=== PATIENT | male | born 1945 | race Caucasian/White ===

== ENCOUNTER 2016-08-07 04:43 | Emergency (ER) | payer OTHER ==
--- NOTE | 2016-08-07 06:18 | DIAGNOSTIC IMAGING REPORT ---
PROCEDURE: CT HEAD WITHOUT CONTRAST INDICATION: TRAUMA/INJURY TECHNIQUE: Noncontrast axial images with sagittal and coronal reformations. COMPARISON: None. FINDINGS: Mild cortical atrophy and minor white matter chronic ischemic changes. Normal ventricular system. No evidence of acute intracranial process. Visualized mastoids and sinuses are clear. IMPRESSION: 1. No acute intracranial abnormality 2. Mild atrophy with minor white matter chronic ischemic changes 3. Findings discussed with Dr. Vinson at 06:16 a.m.[facility] Standard Time
--- NOTE | 2016-08-07 06:18 | DIAGNOSTIC IMAGING REPORT ---
PROCEDURE: CT HEAD WITHOUT CONTRAST INDICATION: TRAUMA/INJURY TECHNIQUE: Noncontrast axial images with sagittal and coronal reformations. COMPARISON: None. FINDINGS: Mild cortical atrophy and minor white matter chronic ischemic changes. Normal ventricular system. No evidence of acute intracranial process. Visualized mastoids and sinuses are clear. IMPRESSION: 1. No acute intracranial abnormality 2. Mild atrophy with minor white matter chronic ischemic changes 3. Findings discussed with Dr. Vinson at 06:16 a.m.[facility] Standard Time
--- NOTE | 2016-08-07 07:14 | DIAGNOSTIC IMAGING REPORT ---
PROCEDURE: XR CHEST 1 VIEW INDICATION: FALL TECHNIQUE: Portable AP view 05:24 a.m. COMPARISON: None. FINDINGS: Poor inspiration with mild bibasilar atelectasis versus scarring. Heart and mediastinum are normal. Thorax is normal. IMPRESSION: 1. Progression with mild bibasilar atelectasis versus scarring
--- NOTE | 2016-08-07 09:14 | ED ORDER SUMMARY ---
..... Patient: GLENNA DIAZ OrderSheet [facility] VisitID: [id number] [place] [address] 71y, M Registration Date/Time: 08/07/2016 ORDER SHEET Weight: 81.6 kg (stated) Allergies: No Known Drug Allergy GENERAL ORDERS: Chest 1V Urgent (05:08/07/2016 Jocelyn LUCIA) (Ack 5:19 SRedmond) (5:28 Deysi) Service Team Leader (Continuous) (05:08/07/2016 Jocelyn LUCIA) (Ack 5:19 SRedmond) (5:36 DDavis R.N.) CBC w Diff Urgent (05:08/07/2016 Jocelyn LUCIA) (Ack 5:19 SRedmond) (5:36 DDavis R.N.) CMP Urgent (05:08/07/2016 Jocelyn LUCIA) (Ack 5:19 SRedmond) (5:36 DDavis R.N.) PT with INR Urgent (05:08/07/2016 Jocelyn LUCIA) (Ack 5:19 SRedmond) (5:36 DDavis R.N.) PTT Urgent (05:08/07/2016 Jocelyn LUCIA) (Ack 5:19 SRedmond) (5:36 DDavis R.N.) Amylase Urgent (05:08/07/2016 Jocelyn LUCIA) (Ack 5:19 SRedmond) (5:36 DDavis R.N.) Lipase Urgent (05:08/07/2016 Jocelyn LUCIA) (Ack 5:19 SRedmond) (5:36 DDavis R.N.) CPK Urgent (05:08/07/2016 Jocelyn LUCIA) (Ack 5:19 SRedmond) (5:36 DDavis R.N.) Troponin-I Urgent (05:08/07/2016 Jocelyn LUCIA) (Ack 5:19 SRedmond) (5:36 DDavis R.N.) Ethyl Alcohol Urgent (05:08/07/2016 Jocelyn LUCIA) (Ack 5:19 SRedmond) (5:36 DDavis R.N.) Pulse oximeter (05:14 08/07/2016 Jocelyn LUCIA) (Ack 5:19 SRedmond) (5:36 DDavis R.N.) Oxygen (2 L/min) (NC) (05:08/07/2016 Jocelyn LUCIA) (Ack 5:19 SRedmond) (5:42 RCollier R.N.) EKG - ER Stat (05:08/07/2016 Jocelyn LUCIA) (5:15 CHagerty ER Metalizing Machine Operator) Vitals - Orthostatic (05:08/07/2016 Jocelyn LUCIA) (Ack 5:19 SRedmond) CT Head wo Cont Urgent (05:08/07/2016 Jocelyn LUCIA) (Ack 5:19 SRedmond) (5:42 RCollier R.N.) MEDICATION ORDERS: IV FLUIDS: IV Saline Lock (05:08/07/2016 Jocelyn LUCIA) (Ack 5:26 RCollier R.N.) (5:37 DDavis R.N.) ORDER SHEET NOTES: [Electronically signed by Marlon Lopez R.N. (10:07 08/07/2016)] [Electronically signed by Kvng Vinson MD (22:24 08/12/2016)] [Electronically locked/signed by Marlon Lopez R.N. (10:08/07/2016)]
--- NOTE | 2016-08-07 09:14 | ED NURSING NOTES ---
Clinical Report - Nurses [facility] [address] [place] [address] 08/07/2016 4:47 Patient: GLENNA DIAZ TRIAGE Triage time 04:47. Acuity: LEVEL 3. Chief Complaint: FALL while walking, onto a carpeted surface; lost balance. Alert. No acute distress. --04:53 Christiana Hilliard R.N. 04:47 08/07/16. BP: 117/74. HR: 76. RR: 17. O2 saturation: 92% on room air. Temp: 97.6 F (oral). Pain level now: 0/10. --04:53 Christiana Hilliard R.N. Weight: 81.6 kg stated. Height/Length: 72 inches Per Patient. BMI: 24.4. --04:52 Christiana Hilliard R.N. Medications Enoxaparin Sodium Subcutaneous (Solution 80 mg/0.8mL). --04:57 Christiana Hilliard R.N. Warfarin Sodium Oral (Tablet 5 mg) 1 tablet, daily (one and a half tablets on Wednesday, Wednesday, and Wednesday). --04:59 Christiana Hilliard R.N. Atorvastatin Calcium Oral (Tablet 40 mg) 1 tablet, daily. --05:00 Christiana Hilliard R.N. Perphenazine Oral (Tablet 2 mg) 1 tablet, twice daily. --05:01 Christiana Hilliard R.N. AmLODIPine Besylate Oral (Tablet 2.5 mg) 3 tablets, daily, for blood pressure. --05:02 Christiana Hilliard R.N. Vitamin D Oral (Tablet 1000 unit) 2 tablets, daily. --05:03 Christiana Hilliard R.N. Doxepin HCl Oral (Capsule 50 mg) 1 capsule, 2x a day. --05:03 Christiana Hilliard R.N. Propranolol HCl ER Oral 20mg, twice daily. --05:04 Christiana Hilliard R.N. FLUoxetine HCl Oral (Capsule 10 mg) 5 capsules, daily, depression. --05:08 Christiana Hilliard R.N. Allergies No Known Drug Allergy. --05:16 Christiana Hilliard R.N. History Arrived by EMS. Historian: patient. Primary physician ([place]). ( pt lives home alone and has resent history of GLFs. Pt states he has home health nurses that come to see him once a week for past month, pt reports Wednesday was last visit and services are now canceled.). This occurred just prior to arrival and today. Treatment FOOD AND BEVERAGE LEAD: See EMS report. PAST MEDICAL HX: Tetanus status: unknown. SOCIAL HX: Smoker- current status unknown (smokes Ciggarellos (3 daily)). Alcohol use; consumes three liquor daily. No drug use. FUNCTIONAL ASSESSMENT: Functional assessment performed: requires assistance with the activities of daily living; uses walker and cane. --04:53 Christiana Hilliard R.N. PROBLEMS: Anxiety Reaction. Hypertension. Depression. --05:14 Christiana Hilliard R.N. Interventions ID band on patient. To treatment room. --04:53 Christiana Hilliard R.N. PHYSICAL ASSESSMENT Patient gowned. GENERAL / NEURO / PSYCH: Alert. Oriented X 4. Appears in no acute distress. HEENT: Left frontal area: large and superficial abrasion. RESPIRATORY: Respirations not labored. CVS: Capillary refill less than 2 seconds. SKIN: Skin is warm and dry. --04:54 Christiana Hilliard R.N. NURSING PROGRESS NOTES Two patient identifiers checked. Call light placed in reach. Side rails up x 2. Bed placed in lowest position. Brakes of bed on. --04:54 Christiana Hilliard R.N. 04:54 08/07/2016 Site #1 started via IV in the left wrist with an 20g angiocath, with aseptic technique and good blood return. Saline lock flushed with 10 mL saline (Started by SHAHID Rosen). --04:54 Christiana Hilliard R.N. EKG time: (0500). EKG was ordered, performed by a tech and shown to the ED physician. --05:14 Isacc Raygoza, ER Insurance Processor Patient transported to CT by stretcher with tech. (05:35). --05:35 Christiana Hilliard R.N. 05:32 08/07/2016 Site #2 started via IV in the right antecubital space with an 20g angiocath, with aseptic technique and good blood return; one attempt. Blood drawn: rainbow set. Labeled in the presence of the patient and sent to the lab. Saline lock flushed with 10 mL saline. --05:37 David Landis R.N. Patient returned from CT by stretcher with tech. (05:41). --05:41 Christiana Hilliard R.N. Visitor at bedside (Daughter). Patient and family informed about plan of care. --05:50 Christiana Hilliard R.N. 05:50 08/07/16. BP: 129/73. HR: 84. RR: 15. O2 saturation: 94% on room air. Pain level now: 0/10. --05:51 Christiana Hilliard R.N. ( Daughter, Becky Hayes, states she is going home to rest. Will be available to pick pt up, when ready. cell chetan #[phone]). --06:16 Christiana Hilliard R.N. The patient is calm and resting quietly. GENERAL / NEURO / PSYCH: Alert. Oriented X 4. RESPIRATORY: No respiratory distress. --07:33 Ebony Sams R.N. 07:32 08/07/16. BP: 133/68. HR: 82. RR: 18. O2 saturation: 94%. Pain level now 0/10. --07:33 Ebony Sams R.N. 10:04 08/07/16. BP: 117/57. HR: 67. RR: 14. O2 saturation: 94%. Temp: 98.6 F. Pain level now 0/10. 08:30 08/07/16. BP: 122/72. HR: 76. RR: 18. O2 saturation: 94%. 07:30 08/07/16. BP: 127/63. HR: 73. RR: 18. O2 saturation: 93%. --10:06 Marlon Lopez R.N. DISPOSITION / DISCHARGE 09:49 08/07/2016 Site #1 removed upon discharge. Catheter intact. Pressure dressing applied. --10:04 Marlon Lopez R.N. 09:54 08/07/2016 Site #2 removed upon discharge. Catheter intact. Pressure dressing applied. --10:04 Marlon Lopez R.N. Condition at departure: improved. No learning barriers present. Discharge instructions provided and reviewed with the patient and family. Reviewed warnings. Reviewed medication(s). Treatments reviewed. Reviewed referrals. Patient verbalized understanding. Written instructions provided in Uzbek. The patient was discharged home and accompanied by family. He left the Emergency Department ambulatory and via private vehicle. Family member driving. --10:05 Marlon Lopez R.N. 10:04 08/07/16. BP: 117/57. HR: 67. RR: 14. O2 saturation: 94%. Temp: 98.6 F. Pain level now 0/10. --10:05 Marlon Lopez R.N. Departure time: 10:Aug 07 2016. --10:06 Marlon Lopez R.N. Locked/Released at 08/07/2016 10:07 by Marlon Lopez R.N.
--- NOTE | 2016-08-07 09:14 | ED NURSING NOTES ---
Clinical Report - Nurses [place] [address] [place] [address] 08/07/2016 4:47 Patient: GLENNA DIAZ TRIAGE Triage time 04:47. Acuity: LEVEL 3. Chief Complaint: FALL while walking, onto a carpeted surface; lost balance. Alert. No acute distress. --04:53 Christiana Hilliard R.N. 04:47 08/07/16. BP: 117/74. HR: 76. RR: 17. O2 saturation: 92% on room air. Temp: 97.6 F (oral). Pain level now: 0/10. --04:53 Christiana Hilliard R.N. Weight: 81.6 kg stated. Height/Length: 72 inches Per Patient. BMI: 24.4. --04:52 Christiana Hilliard R.N. Medications Enoxaparin Sodium Subcutaneous (Solution 80 mg/0.8mL). --04:57 Christiana Hilliard R.N. Warfarin Sodium Oral (Tablet 5 mg) 1 tablet, daily (one and a half tablets on Wednesday, Wednesday, and Wednesday). --04:59 Christiana Hilliard R.N. Atorvastatin Calcium Oral (Tablet 40 mg) 1 tablet, daily. --05:00 Christiana Hilliard R.N. Perphenazine Oral (Tablet 2 mg) 1 tablet, twice daily. --05:01 Christiana Hilliard R.N. AmLODIPine Besylate Oral (Tablet 2.5 mg) 3 tablets, daily, for blood pressure. --05:02 Christiana Hilliard R.N. Vitamin D Oral (Tablet 1000 unit) 2 tablets, daily. --05:03 Christiana Hilliard R.N. Doxepin HCl Oral (Capsule 50 mg) 1 capsule, 2x a day. --05:03 Christiana Hilliard R.N. Propranolol HCl ER Oral 20mg, twice daily. --05:04 Christiana Hilliard R.N. FLUoxetine HCl Oral (Capsule 10 mg) 5 capsules, daily, depression. --05:08 Christiana Hilliard R.N. Allergies No Known Drug Allergy. --05:16 Christiana Hilliard R.N. History Arrived by EMS. Historian: patient. Primary physician (ME). ( pt lives home alone and has resent history of GLFs. Pt states he has home health nurses that come to see him once a week for past month, pt reports Wednesday was last visit and services are now canceled.). This occurred just prior to arrival and today. Treatment HEALTH INFORMATION SYSTEMS TECHNICIAN: See EMS report. PAST MEDICAL HX: Tetanus status: unknown. SOCIAL HX: Smoker- current status unknown (smokes Ciggarellos (3 daily)). Alcohol use; consumes three liquor daily. No drug use. FUNCTIONAL ASSESSMENT: Functional assessment performed: requires assistance with the activities of daily living; uses walker and cane. --04:53 Christiana Hilliard R.N. PROBLEMS: Anxiety Reaction. Hypertension. Depression. --05:14 Christiana Hilliard R.N. Interventions ID band on patient. To treatment room. --04:53 Christiana Hilliard R.N. PHYSICAL ASSESSMENT Patient gowned. GENERAL / NEURO / PSYCH: Alert. Oriented X 4. Appears in no acute distress. HEENT: Left frontal area: large and superficial abrasion. RESPIRATORY: Respirations not labored. CVS: Capillary refill less than 2 seconds. SKIN: Skin is warm and dry. --04:54 Christiana Hilliard R.N. NURSING PROGRESS NOTES Two patient identifiers checked. Call light placed in reach. Side rails up x 2. Bed placed in lowest position. Brakes of bed on. --04:54 Christiana Hilliard R.N. 04:54 08/07/2016 Site #1 started via IV in the left wrist with an 20g angiocath, with aseptic technique and good blood return. Saline lock flushed with 10 mL saline (Started by SHAHID Rosen). --04:54 Christiana Hilliard R.N. EKG time: (0500). EKG was ordered, performed by a tech and shown to the ED physician. --05:14 Isacc Raygoza, ER Boring Machine Set Up Operator Jig Patient transported to CT by stretcher with tech. (05:35). --05:35 Christiana Hilliard R.N. 05:32 08/07/2016 Site #2 started via IV in the right antecubital space with an 20g angiocath, with aseptic technique and good blood return; one attempt. Blood drawn: rainbow set. Labeled in the presence of the patient and sent to the lab. Saline lock flushed with 10 mL saline. --05:37 David Landis R.N. Patient returned from CT by stretcher with tech. (05:41). --05:41 Christiana Hilliard R.N. Visitor at bedside (Daughter). Patient and family informed about plan of care. --05:50 Christiana Hilliard R.N. 05:50 08/07/16. BP: 129/73. HR: 84. RR: 15. O2 saturation: 94% on room air. Pain level now: 0/10. --05:51 Christiana Hilliard R.N. ( Daughter, Becky Hayes, states she is going home to rest. Will be available to pick pt up, when ready. cell chetan #[phone]). --06:16 Christiana Hilliard R.N. The patient is calm and resting quietly. GENERAL / NEURO / PSYCH: Alert. Oriented X 4. RESPIRATORY: No respiratory distress. --07:33 Ebony Sams R.N. 07:32 08/07/16. BP: 133/68. HR: 82. RR: 18. O2 saturation: 94%. Pain level now 0/10. --07:33 Ebony Sams R.N. 10:04 08/07/16. BP: 117/57. HR: 67. RR: 14. O2 saturation: 94%. Temp: 98.6 F. Pain level now 0/10. 08:30 08/07/16. BP: 122/72. HR: 76. RR: 18. O2 saturation: 94%. 07:30 08/07/16. BP: 127/63. HR: 73. RR: 18. O2 saturation: 93%. --10:06 Marlon Lopez R.N. DISPOSITION / DISCHARGE 09:49 08/07/2016 Site #1 removed upon discharge. Catheter intact. Pressure dressing applied. --10:04 Marlon Lopez R.N. 09:54 08/07/2016 Site #2 removed upon discharge. Catheter intact. Pressure dressing applied. --10:04 Marlon Lopez R.N. Condition at departure: improved. No learning barriers present. Discharge instructions provided and reviewed with the patient and family. Reviewed warnings. Reviewed medication(s). Treatments reviewed. Reviewed referrals. Patient verbalized understanding. Written instructions provided in Swedish. The patient was discharged home and accompanied by family. He left the Emergency Department ambulatory and via private vehicle. Family member driving. --10:05 Marlon Lopez R.N. 10:04 08/07/16. BP: 117/57. HR: 67. RR: 14. O2 saturation: 94%. Temp: 98.6 F. Pain level now 0/10. --10:05 Marlon Lopez R.N. Departure time: 10:Aug 07 2016. --10:06 Marlon Lopez R.N. Locked/Released at 08/07/2016 10:07 by Marlon Lopez R.N.
--- NOTE | 2016-08-07 09:14 | ED ORDER SUMMARY ---
..... Patient: GLENNA DIAZ OrderSheet [facility] VisitID: [id number] [place] [address] 71y, M Registration Date/Time: 08/07/2016 ORDER SHEET Weight: 81.6 kg (stated) Allergies: No Known Drug Allergy GENERAL ORDERS: Chest 1V Urgent (05:08/07/2016 Jocelyn LUCIA) (Ack 5:19 SRedmond) (5:28 Deysi) Zyglo Technician (Continuous) (05:08/07/2016 Jocelyn LUCIA) (Ack 5:19 SRedmond) (5:36 DDavis R.N.) CBC w Diff Urgent (05:08/07/2016 Jocelyn LUCIA) (Ack 5:19 SRedmond) (5:36 DDavis R.N.) CMP Urgent (05:08/07/2016 Jocelyn LUCIA) (Ack 5:19 SRedmond) (5:36 DDavis R.N.) PT with INR Urgent (05:08/07/2016 Jocelyn LUCIA) (Ack 5:19 SRedmond) (5:36 DDavis R.N.) PTT Urgent (05:08/07/2016 Jocelyn LUCIA) (Ack 5:19 SRedmond) (5:36 DDavis R.N.) Amylase Urgent (05:08/07/2016 Jocelyn LUCIA) (Ack 5:19 SRedmond) (5:36 DDavis R.N.) Lipase Urgent (05:08/07/2016 Jocelyn LUCIA) (Ack 5:19 SRedmond) (5:36 DDavis R.N.) CPK Urgent (05:08/07/2016 Jocelyn LUCIA) (Ack 5:19 SRedmond) (5:36 DDavis R.N.) Troponin-I Urgent (05:08/07/2016 Jocelyn LUCIA) (Ack 5:19 SRedmond) (5:36 DDavis R.N.) Ethyl Alcohol Urgent (05:08/07/2016 Jocelyn LUCIA) (Ack 5:19 SRedmond) (5:36 DDavis R.N.) Pulse oximeter (05:14 08/07/2016 Jocelyn LUCIA) (Ack 5:19 SRedmond) (5:36 DDavis R.N.) Oxygen (2 L/min) (NC) (05:08/07/2016 Jocelyn LUCIA) (Ack 5:19 SRedmond) (5:42 RCollier R.N.) EKG - ER Stat (05:08/07/2016 Jocelyn LUCIA) (5:15 CHagerty ER Glue Sprayer) Vitals - Orthostatic (05:08/07/2016 Jocelyn LUCIA) (Ack 5:19 SRedmond) CT Head wo Cont Urgent (05:08/07/2016 Jocelyn LUCIA) (Ack 5:19 SRedmond) (5:42 RCollier R.N.) MEDICATION ORDERS: IV FLUIDS: IV Saline Lock (05:08/07/2016 Jocelyn ULCIA) (Ack 5:26 RCollier R.N.) (5:37 DDavis R.N.) ORDER SHEET NOTES: [Electronically signed by Marlon Lopez R.N. (10:07 08/07/2016)] [Electronically signed by Kvng Vinson MD (22:24 08/12/2016)] [Electronically locked/signed by Marlon Lopez R.N. (10:08/07/2016)]
--- NOTE | 2016-08-07 09:14 | ED CLINICAL REPORT ---
Clinical Report - Physicians/Mid Levels [facility] [address] [place] [address] 08/07/2016 4:47 Patient: GLENNA DIAZ Time Seen: 05:01. Arrived- By private vehicle. Historian- patient. HISTORY OF PRESENT ILLNESS Location of injuries- head. Chief Complaint: FALL. The injury occurred just prior to arrival. Occurred at home. ( the patient lives alone and has been having increasing numbers of falls lately. He is unsure why this happens and says that it is "because I lose my balance." His daughter arrived later in his visit and she reports that the frequency of these falls as increased. She also says that he does drink a lot of alcohol and is not candid about the amount that he drinks). Fell. The patient denies pain. The patient sustained a blow to the head. No neck pain or loss of consciousness. (He reports a small abrasion on his scalp.). REVIEW OF SYSTEMS No chills, fever, sweats, calf pain or chest pain. No cough, difficulty breathing, pedal edema, palpitations or abdominal pain. No constipation, diarrhea, nausea, vomiting or urinary problems. All systems otherwise negative, except as recorded above. PAST HISTORY [facility] - [facility]. SOCIAL HISTORY Current every day light tobacco smoker. Regular alcohol use; consumes three liquor daily. No drug use. He lives alone. FAMILY HISTORY Denies family medical history. ADDITIONAL NOTES The nursing notes have been reviewed. PHYSICAL EXAM Vital Signs: 08/07/2016 04:47 BP: 117/74. HR: 76. RR: 17. O2 saturation: 92%. Temp: 97.6 F. Pain level now: 0/10. Have been reviewed. Appearance: Alert. Head: Head non-tender. No swelling of head. Right frontal area: small abrasion. No deep abrasion. Eyes: Pupils equal, round and reactive to light. EOM intact. ENT: No dental injury. Pharynx normal. Neck: Painless ROM. Non-tender. CVS: Heart sounds normal. Respiratory: Breath sounds normal. Abdomen: No visible injury. Soft and nontender. Bowel sounds normal. No organomegaly. No mass. Back: ROM normal. Skin: Skin warm and dry. Extremities: Pelvis stable. Extremities atraumatic. No lower extremity edema. Neuro: (The patient was noted to have a mild 3 Hz tremor in both of his hands. Additionally he had moderate bradykinesia and cogwheel rigidity). LABS, X-RAYS, AND EKG EKG: Rate: 59. RBBB. Prior EKG unavailable. The study has been independently viewed by me. Chest X-ray: (IMPRESSION: 1. Progression with mild bibasilar atelectasis versus scarring). The X-rays were interpreted by the radiologist and contemporaneously by me. CT Head: (IMPRESSION: 1. No acute intracranial abnormality 2. Mild atrophy with minor white matter chronic ischemic changes). The study was interpreted contemporaneously by me and discussed with the radiologist. Laboratory Tests: CBC w Diff: (JOSE: 08/07/2016 05:23) ( [facility]07[facility] 05:30) Final results Test Result Flag Units (Reference) WHITE BLOOD COUNT 7.5 K/uL (4.5-11.5) RED BLOOD COUNT 4.90 M/uL (4.50-5.90) HEMOGLOBIN 13.3 L gm/dL (13.5-17.5) HEMATOCRIT 41.7 % (41.0-53.0) MEAN CELL VOLUME 85 fL (80-100) MEAN CORPUSCULAR HGB 27 pg (26-34) MEAN CORPUSCULAR HGB CONC 32 g/dL (31-37) RED CELL DISTRIBUTION WIDTH 20.9 H % (11.6-14.8) PLATELET COUNT 207 K/uL (150-400) NEUTROPHIL % 70.8 % (50-75) LYMPH % 20.6 L % (25-40) MONO % 6.7 % (3-14) EOSINOPHIL % 1.8 % (0-4) BASOPHIL % 0.1 % (0-2) PT with INR: (JOSE: 08/07/2016 05:23) ( [facility] 08/07/2016 05:39) Final results Test Result Flag Units (Reference) INR 2.5 H (0.8-1.2) Low Intensity Therapy: INR 1.5-2.0 PT range 18.5-23.1Mod.Intensity Therapy: INR 2.0-3.0 PT range 23.1-31.5High Intensity Therapy: INR 2.5-3.5 PT range 27.4-35.5High Intensity Therapy 2: INR 3.0-4.0 PT range 31.5-39.3 APTT 39 H SECONDS (24-34) CMP: (JOSE: 08/07/2016 05:23) ( [facility] 08/07/2016 05:46) Final results Test Result Flag Units (Reference) GLUCOSE 97 mg/dL (70-110) BUN 9 mg/dL (7-18) CREATININE 0.6 mg/dL (0.6-1.3) Estimated GFR >60 mL/min Estimated GFR- >60 mL/min Note: Persistent reduction over 3 months in eGFR<60 mL/min/1.73 m2 defines CKD. Patients with eGFR values>=60 mL/min/1.73 m2 may also have CKD if evidence ofpersistent proteinuria. Additional information may be foundat www.kidney.org. SODIUM 145 mmol/L (136-145) POTASSIUM 3.7 mmol/L (3.5-5.1) CHLORIDE 106 mmol/L (98-107) CARBON DIOXIDE 27 mmol/L (21-32) CALCIUM 9.1 mg/dL (8.5-10.1) TOTAL PROTEIN 7.9 g/dL (6.4-8.2) ALBUMIN 3.4 g/dL (3.3-5.0) BILIRUBIN, TOTAL 0.2 mg/dL (0.0-1.0) ALKALINE PHOSPHATASE 89 U/L (46-116) AST (SGOT) 43 H U/L (15-37) ALT (SGPT) 52 U/L (12-78) LIPASE 257 U/L (73-393) AMYLASE 62 U/L (25-115) CPK 69 U/L (24-260) TROPONIN I <0.05 L ng/mL (0.00-1.5) TROPONIN REFERENCE RANGE:<0.1 NEGATIVE0.1-1.5 INDETERMINANT>1.5 POSITIVE ETHYL ALCOHOL 184 H mg/dL (3-10) . PROGRESS AND PROCEDURES Course of Care: Patient is stable. Patient/family counseled. Old medical records ordered. Disposition: Discharged. Condition: stable. CLINICAL IMPRESSION Single abrasion to the scalp. Alcohol intoxication. Possible Parkinson's Disease. Fall. INSTRUCTIONS Warnings: HEAD INJURY PRECAUTIONS: An observer must check on the patient every 2 hours for the next 24 hours to confirm that the patient responds as expected, is not confused, has no new weakness or numbness, and has no other problems. COMPLICATIONS: Complications from this condition include: possible infection. GENERAL WARNINGS: Return or contact your physician immediately if your condition worsens or changes unexpectedly, if not improving as expected, or if other problems arise. Your Current Medications: CONTINUE TAKING THE FOLLOWING MEDICATIONS: AmLODIPine Besylate Oral : Tablet 2.5 mg, 3 tablets daily, for blood pressure. Atorvastatin Calcium Oral : Tablet 40 mg, 1 tablet daily. Doxepin HCl Oral : Capsule 50 mg, 1 capsule 2x a day. FLUoxetine HCl Oral : Capsule 10 mg, 5 capsules daily, depression. Perphenazine Oral : Tablet 2 mg, 1 tablet twice daily. Propranolol HCl ER Oral : 20mg twice daily. Vitamin D Oral : Tablet 1000 unit, 2 tablets daily. Warfarin Sodium Oral : Tablet 5 mg, 1 tablet daily, one and a half tablets on Wednesday, Wednesday, and Wednesday. Follow-up: Follow up with your doctor Wednesday in three days. Call for the next available appointment. Follow up with a neurologist- as recommended by your primary care physician. Understanding of the discharge instructions verbalized by patient and family. (Electronically signed by Kvng Vinson MD 08/12/2016 22:24)
--- NOTE | 2016-08-12 22:24 | ED MED RECONCILIATION SUMMARY ---
Patient: GLENNA DIAZ Medication Reconciliation Report [facility] VisitID: [id number] [place] [address] 71y, M Registration Date/Time: 08/07/2016 Weight: 81.6 kg Height/Length: 72 in. BMI: 24.4 ALLERGIES: No Known Drug Allergy The patient's Home Medications are listed below: CONTINUE TAKING THE FOLLOWING MEDICATIONS: AmLODIPine Besylate Oral (2.5 mg) 3 tablets, daily, for blood pressure Atorvastatin Calcium Oral (40 mg) 1 tablet, daily Doxepin HCl Oral (50 mg) 1 capsule, 2x a day FLUoxetine HCl Oral (10 mg) 5 capsules, daily, depression Perphenazine Oral (2 mg) 1 tablet, twice daily Propranolol HCl ER Oral 20mg, twice daily Vitamin D Oral (1000 unit) 2 tablets, daily Warfarin Sodium Oral (5 mg) 1 tablet, daily, one and a half tablets on Wednesday, Wednesday, and Wednesday THE FOLLOWING MEDICATIONS NEED TO BE RECONCILED: Enoxaparin Sodium Subcutaneous (80 mg/0.8mL) The source(s) of the original Home Medication information: Not obtained. The following Medications were given to the patient in the Emergency Department: None. The following Medications were prescribed to the patient: None.
--- NOTE | 2016-08-12 22:24 | ED MAR SUMMARY ---
..... Medication Administration Record [facility] [address] [place], [place] [id number] Patient: GLENNA DIAZ Visit ID: [id number] 71y, M Weight: 81.6 kg Height/Length: 72 in BMI: 24.4 ALLERGIES: No Known Drug Allergy
--- NOTE | 2016-08-12 22:24 | ED DISCHARGE INSTRUCTIONS ---
Patient: GLENNA DIAZ General Instructions [facility] VisitID: [id number] [place] [address] 71y, M Registration Date/Time: 08/07/2016 Single abrasion to the scalp. Alcohol intoxication. Fall. INSTRUCTIONS Warnings: HEAD INJURY PRECAUTIONS: An observer must check on the patient every 2 hours for the next 24 hours to confirm that the patient responds as expected, is not confused, has no new weakness or numbness, and has no other problems. COMPLICATIONS: Complications from this condition include: possible infection. GENERAL WARNINGS: Return or contact your physician immediately if your condition worsens or changes unexpectedly, if not improving as expected, or if other problems arise. Your Current Medications: CONTINUE TAKING THE FOLLOWING MEDICATIONS: AmLODIPine Besylate Oral : Tablet 2.5 mg, 3 tablets daily, for blood pressure. Atorvastatin Calcium Oral : Tablet 40 mg, 1 tablet daily. Doxepin HCl Oral : Capsule 50 mg, 1 capsule 2x a day. FLUoxetine HCl Oral : Capsule 10 mg, 5 capsules daily, depression. Perphenazine Oral : Tablet 2 mg, 1 tablet twice daily. Propranolol HCl ER Oral : 20mg twice daily. Vitamin D Oral : Tablet 1000 unit, 2 tablets daily. Warfarin Sodium Oral : Tablet 5 mg, 1 tablet daily, one and a half tablets on Wednesday, Wednesday, and Wednesday. Follow-up: Follow up with your doctor Wednesday in three days. Call for the next available appointment. Follow up with a neurologist- as recommended by your primary care physician. Understanding of the discharge instructions verbalized by patient and family. ADDITIONAL INFORMATION Mechanical Fall You have had a fall today. It appears that the cause is mechanical. That means that you slipped, tripped or lost your balance. If your fall had been due to fainting or a seizure, further tests would be required. Home Care: Rest today and resume your normal activities when you are feeling back to normal. If you were injured during the fall, follow the advice from your doctor regarding care of your injury. You may use acetaminophen (Tylenol) or ibuprofen (Motrin, Advil) to control pain, unless another pain medicine was prescribed. [NOTE: If you have chronic liver or kidney disease or ever had a stomach ulcer or GI bleeding, talk with your doctor before using these medicines.] Fall Prevention: Was there anything that caused your fall that can be fixed, removed, or replaced? Make your home safe by keeping walkways clear of objects you may trip over. Use non-slip pads under rugs. Do not walk in poorly lit areas. Do not stand on chairs or wobbly ladders. Use caution when reaching overhead or looking upward. This position can cause a loss of balance. Be sure your shoes fit properly, have non-slip bottoms and are in good condition. Be cautious when going up and down curbs, and walking on uneven sidewalks. If your balance is poor, consider using a cane or walker. Stay as active as you can. Balance, flexibility, strength, and endurance all come from exercise. They all play a role in preventing falls. Follow Up with your doctor or as advised by our staff. Get Prompt Medical Attention if any of the following occur: Repeated mechanical falls, or unexplained falls Dizziness, fainting or seizure Severe headache Chest pain or shortness of breath Palpitations (very rapid or very slow or irregular heartbeat) Blood in vomit, stools (black or red color) Weakness of an arm or leg or one side of the face Difficulty with speech or vision Alcohol Intoxication Alcohol intoxication occurs when you drink alcohol faster than your liver can remove it from your system. Alcohol intoxication affects your judgment and coordination. Very high blood alcohol levels can cause coma, very slow breathing and even . If you drink alcohol every day, this may gradually cause permanent damage to your liver, brain, heart, pancreas and other organs. Alcohol use during may cause permanent damage to the growing baby. Home Care: Do not drink any more alcohol. DO NOT DRIVE until all effects of the alcohol have worn off. Get lots of rest over the next few days. Drink plenty of water and other non-alcoholic liquids. Try to eat regular meals. If you have been drinking heavily on a daily basis, you may go through alcohol withdrawl. This is also called the shakes or DTs. The usual symptoms last 3 to 4 days and may include nervousness, shakiness, nausea, sweating or sleeplessness. During this time, it is best that you stay with family or friends who can help and support you. You can also admit yourself to a residential detox program. If your symptoms are severe, contact your doctor for medicines to help. Follow Up: If alcohol is causing a problem in your life, these and other organizations can help you: Alcoholics Anonymous offers support through a self-help fellowship. There are no dues or fees. See the Yellow Pages and call for time and place of meetings. www.aa.org [employer]acy offers support to families of alcohol users. 490.680.9727 www.al-anon.org [employer] [place] On Alcoholism And Drug Dependence 815-363-2133 www.ncadd.org There are also inpatient or residential alcohol detox programs. Check the Internet or phonebook Yellow Pages under Drug Abuse & Treatment Centers. Get Prompt Medical Attention if any of the following occur: there) You have been given the following additional information: Fall, Mechanical Alcohol Intoxication (Electronically signed by Kvng Vinson MD 08/12/2016 22:24)
--- NOTE | 2016-08-12 22:24 | ED MED RECONCILIATION SUMMARY ---
Patient: GLENNA DIAZ Medication Reconciliation Report [facility] VisitID: [id number] [place] [address] 71y, M Registration Date/Time: 08/07/2016 Weight: 81.6 kg Height/Length: 72 in. BMI: 24.4 ALLERGIES: No Known Drug Allergy The patient's Home Medications are listed below: CONTINUE TAKING THE FOLLOWING MEDICATIONS: AmLODIPine Besylate Oral (2.5 mg) 3 tablets, daily, for blood pressure Atorvastatin Calcium Oral (40 mg) 1 tablet, daily Doxepin HCl Oral (50 mg) 1 capsule, 2x a day FLUoxetine HCl Oral (10 mg) 5 capsules, daily, depression Perphenazine Oral (2 mg) 1 tablet, twice daily Propranolol HCl ER Oral 20mg, twice daily Vitamin D Oral (1000 unit) 2 tablets, daily Warfarin Sodium Oral (5 mg) 1 tablet, daily, one and a half tablets on Wednesday, Wednesday, and Wednesday THE FOLLOWING MEDICATIONS NEED TO BE RECONCILED: Enoxaparin Sodium Subcutaneous (80 mg/0.8mL) The source(s) of the original Home Medication information: Not obtained. The following Medications were given to the patient in the Emergency Department: None. The following Medications were prescribed to the patient: None.
--- NOTE | 2016-08-12 22:24 | ED MAR SUMMARY ---
..... Medication Administration Record [facility] [address] [place], [place] [id number] Patient: GLENNA DIAZ Visit ID: [id number] 71y, M Weight: 81.6 kg Height/Length: 72 in BMI: 24.4 ALLERGIES: No Known Drug Allergy
== END 2016-08-07 10:05 | disposition home or self-care (01) ==
LOC: ED SRH 04:43
DX: S00.01XA Abrasion of scalp, initial encounter (principal); W18.39XA Other fall on same level, initial encounter; Y93.01 Activity, walking, marching and hiking; F10.129 Alcohol abuse with intoxication, unspecified; I10 Essential (primary) hypertension; Y99.9 Unspecified external cause status; Y92.009 Unspecified place in unspecified non-institutional (private) residence as the place of occurrence of the external cause; Z79.899 Other long term (current) drug therapy; F17.210 Nicotine dependence, cigarettes, uncomplicated; Z79.01 Long term (current) use of anticoagulants
CPT/HCPCS: 90100; 90616; 92010; 92235; 92530; 92610; 94001; 94060; 95059

== ENCOUNTER 2016-10-05 06:24 | Emergency (ER) | payer OTHER ==
--- NOTE | 2016-10-05 08:52 | DIAGNOSTIC IMAGING REPORT ---
PROCEDURE: ABDOMEN/PELVIS WITH CONTRAST CLINICAL INDICATION: ABDOMINAL PAIN TECHNIQUE: 125 ml of Isovue 300 were injected intravenously and axial images were obtained of the abdomen and pelvis with sagittal and coronal reformations. COMPARISON: None. FINDINGS: ABDOMEN: Moderate bibasilar atelectasis. Normal sized heart. Small hiatal hernia. Trace amount of nonspecific pericholecystic fluid. 3.1 cm exophytic right renal cyst. The liver, gallbladder, adrenal glands, kidneys, pancreas and spleen are otherwise normal. The abdominal aorta is normal in its course. Moderate to heavy mixed calcified and noncalcified atherosclerosis with multiple small focal aneurysmal dilatations measuring up to 2.5 cm through the mid and distal aorta. There are no suspicious calcifications, retroperitoneal adenopathy or masses. The stomach, upper bowel loops, and mesentery are normal. Intact anterior abdominal wall. No free fluid or inflammation. PELVIS: The appendix and pelvic small bowel loops are normal. Mildly increased amount of stool in the colon and rectum. The prostate gland, seminal vesicles, urinary bladder, and pelvic vessels are normal. No adenopathy, free fluid, or pelvic mass. Lateral bridging osteophytes in the thoracic and lumbar spine. Moderately severe spurring in the femoral acetabular joints bilaterally. IMPRESSION: 1. Trace pericholecystic fluid. Otherwise normal biliary tree. This is nonspecific. Correlate clinically and consider right upper quadrant ultrasound. 2. Moderate to heavy atherosclerosis. 3. Fairly prominent spurring in the spine and hips suggestive of reactive arthritis. 4. Findings called to the emergency room. All CT scans at this facility use dose modulation, iterative reconstruction, and/or weight-based dosing when appropriate to reduce radiation dose to as low as reasonably achievable.
--- NOTE | 2016-10-05 09:34 | ED CLINICAL REPORT ---
Clinical Report - Physicians/Mid Levels [facility] [address] [place] [address] 10/05/2016 6:27 Patient: GLENNA DIAZ Time Seen: 06:39 Itz 2016. Arrived- By ambulance. Historian- patient and EMS personnel. CPT: ER phys charges level 4 plus (#[id number]). EKG interpretation (#[id number]). HISTORY OF PRESENT ILLNESS Chief Complaint: ABDOMINAL PAIN and VOMITING. At its maximum, severity described as moderate. When seen in the E.D., severity described as moderate. Modifying factors- worsened by food. Not relieved by anything. It is described as "pain" and well localized and it is described as located in the epigastric area. This started just prior to arrival Had large sausage for dinner then awoke at 0400 with severe epigastric pain. [place] he over-ate last night. and is still present. The patient has had nausea and vomiting. No diarrhea. No recent travel. Similar symptoms previously: None. Recent medical care: Not recently seen/assessed. REVIEW OF SYSTEMS No constipation, black stools, hematemesis, difficulty with urination or pain with urination. No urinary frequency, fever, sore throat, chest pain or difficulty breathing. No cough, joint pain, skin rash or chills. All systems otherwise negative, except as recorded above. PAST HISTORY Fall. Alcohol Intoxication. Abrasion(s). Anxiety Reaction. Hypertension. Depression. -- Parkinson's Disease- Leg DVT ADDITIONAL SURGERIES: Elbow surgery . Medications: AmLODIPine Besylate Oral (Tablet 2.5 mg) 3 tablets, daily, for blood pressure. Atorvastatin Calcium Oral (Tablet 40 mg) 1 tablet, daily. Doxepin HCl Oral (Capsule 50 mg) 1 capsule, 2x a day. FLUoxetine HCl Oral (Capsule 10 mg) 5 capsules, daily, depression. Perphenazine Oral (Tablet 2 mg) 1 tablet, twice daily. Propranolol HCl ER Oral 20mg, twice daily. Vitamin D Oral (Tablet 1000 unit) 2 tablets, daily. Warfarin Sodium Oral (Tablet 5 mg) 1 tablet, daily (one and a half tablets on Wednesday, Wednesday, and Wednesday). Allergies: No Known Drug Allergy. SOCIAL HISTORY Light tobacco smoker (cigarette)- less than 1/2 a pack per day. No alcohol use or drug use. ADDITIONAL NOTES The nursing notes have been reviewed. PHYSICAL EXAM Vital Signs: 10/05/2016 06:28 BP: 173/94. HR: 89. RR: 18. O2 saturation: 97%. Temp: 98.1 F. Appearance: Alert. Appears to be in pain. Patient in mild distress. Eyes: Eyes normal inspection. ENT: Pharynx normal. Neck: Normal inspection. CVS: Normal heart rate and rhythm. Heart sounds normal. Pulses normal. Respiratory: No respiratory distress. Breath sounds normal. Chest nontender. Abdomen: Soft. Moderate tenderness in the epigastric area with guarding present. Bowel sounds normal. Back: Normal inspection. Skin: Skin warm. Normal skin color. No rash. Extremities: Extremities exhibit normal ROM. No lower extremity edema. Neuro: Oriented X 3. No motor deficit. No sensory deficit. LABS, X-RAYS, AND EKG EKG: Normal sinus rhythm. Normal P waves. Normal VERONICA. Normal QRS complex. Normal axis. Normal ST and T waves. Prior EKG unavailable. The study has been interpreted contemporaneously. The study has been independently viewed by me. The EKG appears to be a good tracing. Abdominal CT: Trace pericholecystic fluid, hiatal hernia, pancreas normal. Abdominal CT performed with IV contrast. The study was independently viewed by me, interpreted by the radiologist and discussed with the radiologist. Laboratory Tests: UA-Culture if indicated: (JOSE: 10/05/2016 07:25) ( MsgRcvd 10/05/2016 07:49) Final results Test Result Flag Units (Reference) URINE COLOR YELLOW URINE APPEARANCE CLEAR URINE GLUCOSE NEGATIVE (NEGATIVE) URINE BILIRUBIN NEGATIVE (NEGATIVE) URINE KETONE TRACE (NEGATIVE) URINE SPECIFIC GRAVITY 1.020 (1.010-1.030) URINE PH 6.0 (5.0-8.0) URINE PROTEIN NEGATIVE (NEGATIVE) URINE UROBILINOGEN 0.2 EU/dL (0.2-1.0) URINE NITRITE NEGATIVE (NEGATIVE) URINE BLOOD NEGATIVE (NEGATIVE) URINE LEUK ESTERASE NEGATIVE (NEGATIVE) URINE RBC 0-1 rbc/hpf (0-1) URINE WBC 1-3 wbc/hpf (0-1) URINE EPITHELIAL CELLS 0-1 EPI/hpf (0-5) URINE BACTERIA TRACE (<1+) (NONE SEEN) URINE COMMENT CULT NOT INDICATED 1+ MUCOUS3-5 HYALINE CASTS/LPFURINE CULTURES ARE SET-UP BASED ON THE FOLLOWING CRITERIA:POSITIVE NITRITEPOSITIVE LEUKOCYTE ESTERASEGREATER THAN 10 WHITE BLOOD CELLSMODERATE (2+) OR GREATER BACTERIA CBC w Diff: (JOSE: 10/05/2016 06:30) ( [facility] 10/05/2016 08:37) Final results Test Result Flag Units (Reference) WHITE BLOOD COUNT 12.6 H K/uL (4.5-11.5) RED BLOOD COUNT 5.27 M/uL (4.50-5.90) HEMOGLOBIN 13.6 gm/dL (13.5-17.5) HEMATOCRIT 41.6 % (41.0-53.0) MEAN CELL VOLUME 79 L fL (80-100) MEAN CORPUSCULAR HGB 26 pg (26-34) MEAN CORPUSCULAR HGB CONC 33 g/dL (31-37) RED CELL DISTRIBUTION WIDTH 20.6 H % (11.6-14.8) PLATELET COUNT 259 K/uL (150-400) LYMPH % 10.6 L % (25-40) MONO % 2.3 L % (3-14) GRANULOCYTE % 87.1 RBC MORPHOLOGY 2+ ANISOCYTOSIS PT with INR: (JOSE: 10/05/2016 06:30) ( [facility] 10/05/2016 06:58) Final results Test Result Flag Units (Reference) INR 3.3 H (0.8-1.2) Low Intensity Therapy: INR 1.5-2.0 PT range 18.5-23.1Mod.Intensity Therapy: INR 2.0-3.0 PT range 23.1-31.5High Intensity Therapy: INR 2.5-3.5 PT range 27.4-35.5High Intensity Therapy 2: INR 3.0-4.0 PT range 31.5-39.3 APTT 55 H SECONDS (24-34) Amylase: (JOSE: 10/05/2016 06:30) ( MsgRcvd 10/05/2016 07:36) Final results Test Result Flag Units (Reference) LIPASE 170 U/L (73-393) AMYLASE 59 U/L (25-115) CPK 28 U/L (24-260) TROPONIN I <0.05 ng/mL (0.00-1.5) TROPONIN REFERENCE RANGE:<0.1 NEGATIVE0.1-1.5 INDETERMINANT>1.5 POSITIVE CMP: (JOSE: 10/05/2016 06:30) ( MsgRcvd 10/05/2016 07:00) Final results Test Result Flag Units (Reference) GLUCOSE 137 H mg/dL (70-110) BUN 12 mg/dL (7-18) CREATININE 0.8 mg/dL (0.6-1.3) Estimated GFR >60 mL/min Estimated GFR- >60 mL/min Note: Persistent reduction over 3 months in eGFR<60 mL/min/1.73 m2 defines CKD. Patients with eGFR values>=60 mL/min/1.73 m2 may also have CKD if evidence ofpersistent proteinuria. Additional information may be foundat www.kidney.org. SODIUM 142 mmol/L (136-145) POTASSIUM 3.9 mmol/L (3.5-5.1) CHLORIDE 106 mmol/L (98-107) CARBON DIOXIDE 28 mmol/L (21-32) CALCIUM 9.1 mg/dL (8.5-10.1) TOTAL PROTEIN 7.5 g/dL (6.4-8.2) ALBUMIN 3.1 L g/dL (3.3-5.0) BILIRUBIN, TOTAL 0.2 mg/dL (0.0-1.0) ALKALINE PHOSPHATASE 106 U/L (46-116) AST (SGOT) 13 L U/L (15-37) ALT (SGPT) 19 U/L (12-78) . PROGRESS AND PROCEDURES Course of Care: IV NS Demerol 12.5 mg IV Zofran 4 mg IV Pain down to a 2/10 with IV meds. White GI cocktail and immediate relief of all GI pain. Discussed possibility of GB and reflux. Will treat for reflux at this time and he will follow up in 4 days. Patient is stable. Symptoms much better. Patient/family counseled. Disposition: Discharged. Condition: stable and improved. CLINICAL IMPRESSION Acute esophagitis associated with gastro-esophageal reflux disease (GERD). INSTRUCTIONS Drink plenty of fluids. Avoid alcohol and NSAIDS. Examples of NSAIDS include aspirin, ibuprofen (Advil) and naproxen (Aleve). Avoid spicy foods. Other diet: No caffeine. Your Current Medications: CONTINUE TAKING THE FOLLOWING MEDICATIONS: AmLODIPine Besylate Oral : Tablet 2.5 mg, 3 tablets daily, for blood pressure. Atorvastatin Calcium Oral : Tablet 40 mg, 1 tablet daily. Doxepin HCl Oral : Capsule 50 mg, 1 capsule 2x a day. FLUoxetine HCl Oral : Capsule 10 mg, 5 capsules daily, depression. Perphenazine Oral : Tablet 2 mg, 1 tablet twice daily. Propranolol HCl ER Oral : 20mg twice daily. Vitamin D Oral : Tablet 1000 unit, 2 tablets daily. Warfarin Sodium Oral : Tablet 5 mg, 1 tablet daily, one and a half tablets on Wednesday, Wednesday, and Wednesday. Prescription Medications: Carafate 1 gm tablets: take 1 orally four times daily (before meals and at bedtime) for 10 days. Dispense forty (40). No refills. Prilosec 40 mg capsules: take 1 capsule orally every day for 10 days. Dispense ten (10). No refill. Substitution is permissible. Follow-up: Follow up with your doctor Wednesday in four days. Call for an appointment. Understanding of the discharge instructions verbalized by patient. (Electronically signed by Sanjay Patino MD 10/07/2016 7:58)
--- NOTE | 2016-10-05 09:34 | ED ORDER SUMMARY ---
..... Patient: GLENNA DIAZ OrderSheet [facility] VisitID: [id number] [place] [address] 71y, M Registration Date/Time: 10/05/2016 ORDER SHEET Weight: 81.6 kg (stated) Allergies: No Known Drug Allergy GENERAL ORDERS: Dance Master (Continuous) (Epigastric pain) (06:36 10/05/2016 JRness R.N. verbal order read back to Tylor LUCIA) (6:55 LWhalen R.N.) CMP Urgent (06:37 10/05/2016 JRness R.N. verbal order read back to Tylor LUCIA) (Ack 7:11 Greyson) (7:17 JBoarshannon R.N.) CBC w Diff Urgent (06:37 10/05/2016 JRness R.N. verbal order read back to Tylor LUCIA) (Ack 7:11 Greyson) (7:17 JBoarflacoy R.N.) UA-Culture if indicated Urgent (06:37 10/05/2016 JRness R.N. verbal order read back to Tylor LUCIA) (Ack 7:11 Greyson) (7:34 JBdanny R.N.) Pulse oximeter (06:37 10/05/2016 JRness R.N. verbal order read back to Tylor LUCIA) (6:39 HSoule) EKG - ER Stat (06:37 10/05/2016 Uche R.N. verbal order read back to Tylor LUCIA) (6:45 HSoule) PT with INR Urgent (06:38 10/05/2016 JRrosinaelli R.N. verbal order read back to Tylor LUCIA) (Ack 7:11 Greyson) (7:18 JBdanny R.N.) PTT Urgent (06:38 10/05/2016 JRomanelli R.N. verbal order read back to Tylor LUCIA) (Ack 7:11 Greyson) (7:18 JBoarshannon R.N.) CPK Urgent (06:44 10/05/2016 Tylor LUCIA) (Ack 7:11 Greyson) (7:18 JBoarshannon R.N.) Troponin-I Urgent (06:44 10/05/2016 Tylor LUCIA) (Ack 7:11 Greyson) (7:18 JBoardledaniel R.N.) Lipase Urgent (06:44 10/05/2016 Tylor LUCIA) (Ack 7:11 Greyson) (7:18 JBoarshannon R.N.) Amylase Urgent (06:44 10/05/2016 Tylor LUCIA) (Ack 7:11 Greyson) (7:18 JBoardley R.N.) CT Abd/Pel w Cont (No) (pending) Urgent (06:45 10/05/2016 Tylor LUCIA) (Ack 7:11 Greyson) (8:16 LNations ER Tech1) MEDICATION ORDERS: Alprazolam PO 0.25 mg (NOW) (06:47 10/05/2016 Tylor LUCIA) (6:53 LWhalen R.N.) GI Cocktail WHITE PO 50 mL (NOW) (09:11 10/05/2016 Tylor LUCIA) (Ack 9:13 [place] R.N.) (9:23 JBdanny R.N.) IV FLUIDS: IV Saline Lock (06:37 10/05/2016 Uche R.NMingo verbal order read back to Tylor LUCIA) (6:40 HSoule) Demerol IV 12.5 mg (NOW) (06:44 10/05/2016 Tylor LUCIA) (6:50 LWhalen R.N.) Zofran IV 4 mg (NOW) (06:44 10/05/2016 Tylor LUCIA) (6:45 LWhalpaulino R.N.) IV NS : initial bolus none -, then 500 mL/hr for 3h (NOW); Routine (06:45 10/05/2016 Tylor LUCIA) (6:50 LWhalen R.N.) ORDER SHEET NOTES: [Electronically signed by Westley Encarnacion R.N. (09:43 10/05/2016)] [Electronically signed by Sanjay Patino MD (07:58 10/07/2016)] [Electronically locked/signed by Westley Encarnacion R.N. (09:43 10/05/2016)]
--- NOTE | 2016-10-05 09:34 | ED ORDER SUMMARY ---
..... Patient: GLENNA DIAZ OrderSheet [facility] VisitID: [id number] [place] [address] 71y, M Registration Date/Time: 10/05/2016 ORDER SHEET Weight: 81.6 kg (stated) Allergies: No Known Drug Allergy GENERAL ORDERS: Person Investigator (Continuous) (Epigastric pain) (06:36 10/05/2016 JRness R.N. verbal order read back to Tylor LUCIA) (6:55 LWhalen R.N.) CMP Urgent (06:37 10/05/2016 JRness R.N. verbal order read back to Tylor LUCIA) (Ack 7:11 Greyson) (7:17 JBoarshannon R.N.) CBC w Diff Urgent (06:37 10/05/2016 JRness R.N. verbal order read back to Tylor LUCIA) (Ack 7:11 Greyson) (7:17 JBoarflacoy R.N.) UA-Culture if indicated Urgent (06:37 10/05/2016 JRness R.N. verbal order read back to Tylor LUCIA) (Ack 7:11 Greyson) (7:34 JBdanny R.N.) Pulse oximeter (06:37 10/05/2016 JRness R.N. verbal order read back to Tylor LUCIA) (6:39 HSoule) EKG - ER Stat (06:37 10/05/2016 Uche R.N. verbal order read back to Tylor LUCIA) (6:45 HSoule) PT with INR Urgent (06:38 10/05/2016 JRrosinaelli R.N. verbal order read back to Tylor LUCIA) (Ack 7:11 Greyson) (7:18 JBdanny R.N.) PTT Urgent (06:38 10/05/2016 JRomanelli R.N. verbal order read back to Tylor LUCIA) (Ack 7:11 Greyson) (7:18 JBoarshannon R.N.) CPK Urgent (06:44 10/05/2016 Tylor LUCIA) (Ack 7:11 Greyson) (7:18 JBoarshannon R.N.) Troponin-I Urgent (06:44 10/05/2016 Tylor LUCIA) (Ack 7:11 Greyson) (7:18 JBoardledaniel R.N.) Lipase Urgent (06:44 10/05/2016 Tylor LUCIA) (Ack 7:11 Greyson) (7:18 JBoarshannon R.N.) Amylase Urgent (06:44 10/05/2016 Tylor LUCIA) (Ack 7:11 Greyson) (7:18 JBoardley R.N.) CT Abd/Pel w Cont (No) (pending) Urgent (06:45 10/05/2016 Tylor LUCIA) (Ack 7:11 Greyson) (8:16 LNations ER Tech1) MEDICATION ORDERS: Alprazolam PO 0.25 mg (NOW) (06:47 10/05/2016 Tylor LUCIA) (6:53 LWhalen R.N.) GI Cocktail WHITE PO 50 mL (NOW) (09:11 10/05/2016 Tylor LUCIA) (Ack 9:13 [place] R.N.) (9:23 JBdanny R.N.) IV FLUIDS: IV Saline Lock (06:37 10/05/2016 Uche R.NMingo verbal order read back to Tylor LUCIA) (6:40 HSoule) Demerol IV 12.5 mg (NOW) (06:44 10/05/2016 Tylor LUCIA) (6:50 LWhalen R.N.) Zofran IV 4 mg (NOW) (06:44 10/05/2016 Tylor LUCIA) (6:45 LWhalpaulino R.N.) IV NS : initial bolus none -, then 500 mL/hr for 3h (NOW); Routine (06:45 10/05/2016 Tylor LUCIA) (6:50 LWhalen R.N.) ORDER SHEET NOTES: [Electronically signed by Westley Encarnacion R.N. (09:43 10/05/2016)] [Electronically signed by Sanjay Patino MD (07:58 10/07/2016)] [Electronically locked/signed by Westley Encarnacion R.N. (09:43 10/05/2016)]
--- NOTE | 2016-10-05 09:34 | ED NURSING NOTES ---
Clinical Report - Nurses [facility] [address] [place] [place] [address] 10/05/2016 6:27 Patient: GLENNA DIAZ TRIAGE Triage time 06:Oct 05 2016. Acuity: LEVEL 3. Chief Complaint: ABDOMINAL PAIN, NAUSEA and VOMITING. BARRY COMA SCORE: Warner Coma Scale: 15- eyes open spontaneously (4); best verbal response- oriented x 4 (5); best motor response- obeys commands (6). --06:32 Marlon Lopez R.N. 06:28 10/05/16. BP: 173/94. HR: 89. RR: 18. O2 saturation: 97%. Temp: 98.1 F. Pain level now 10/10. --06:32 Marlon Lopez R.N. Weight: 81.6 kg stated. Height/Length: 72 inches Per Patient. BMI: 24.4. --06:31 Marlon Lopez R.N. Medications AmLODIPine Besylate Oral (Tablet 2.5 mg) 3 tablets, daily, for blood pressure. Atorvastatin Calcium Oral (Tablet 40 mg) 1 tablet, daily. Doxepin HCl Oral (Capsule 50 mg) 1 capsule, 2x a day. FLUoxetine HCl Oral (Capsule 10 mg) 5 capsules, daily, depression. Perphenazine Oral (Tablet 2 mg) 1 tablet, twice daily. Propranolol HCl ER Oral 20mg, twice daily. Vitamin D Oral (Tablet 1000 unit) 2 tablets, daily. Warfarin Sodium Oral (Tablet 5 mg) 1 tablet, daily (one and a half tablets on Wednesday, Wednesday, and Wednesday). --06:30 Marlon Lopez R.N. Allergies No Known Drug Allergy. --06:30 Marlon Lopez R.N. History Arrived by EMS. Historian: patient. This started just prior to arrival. ( Woke up one hour ago and started having abdominal pain and vomiting.). He has had nausea, vomiting and abdominal pain. Last oral intake by patient was dinner. PAST MEDICAL HX: Immunizations: up-to-date. SOCIAL HX: Light tobacco smoker (cigar)- less than 1/2 a pack per day. No alcohol use or drug use. No recent travel. No known contact with a sick individual. SELF HARM ASSESSMENT: A self harm assessment was performed. The patient answered "no" to the question "Have you recently felt down, depressed, or hopeless?" and "Do you have thoughts of harming or killing yourself?". FALL RISK ASSESSMENT: Fall risk assessment completed. No fall risk identified. NUTRITIONAL RISK ASSESSMENT: The nutritional risk assessment revealed no deficiencies. FUNCTIONAL ASSESSMENT: Functional assessment: no impairments noted. LEARNING NEEDS ASSESSMENT: The learning needs assessment revealed no barriers. ABUSE ASSESSMENT: Abuse assessment: (yes) The patient was asked "Do you feel safe in your home?". SKIN INTEGRITY ASSESSMENT: Skin integrity risk assessment completed. No skin integrity risk identified. --06:32 Marlon Lopez R.N. PROBLEMS: Fall. Alcohol Intoxication. Abrasion(s). Anxiety Reaction. Hypertension. Depression. --06:31 Marlon Lopez R.N. Parkinson's Disease [RuleOut]. --06:31 Marlon Lopez R.N. ADDITIONAL SURGERIES: Elbow surgery . --06:31 Marlon Lopez R.N. Interventions ID band on patient. --06:32 Marlon Lopez R.N. PHYSICAL ASSESSMENT To room via stretcher. GENERAL / NEURO / PSYCH: Alert. Oriented X 4. Appears in pain, anxious and in distress. HEENT: Mucous membranes are pink. RESPIRATORY: Respirations not labored. Breath sounds within normal limits. CVS: Normal sinus rhythm noted. Capillary refill less than 2 seconds. GI / : The patient has had nausea. Abdominal tenderness. ( Last BM one day ago). SKIN: Skin is warm and dry. --06:33 Marlon Lopez R.N. NURSING PROGRESS NOTES The initial plan of care for this patient includes an assessment with efforts to address patient positioning, appropriate ambient lighting and comfortable environmental temperature; impairment of the gastrointestinal system. Pulse oximeter and NIBP monitor placed on patient. Patient gowned. Head of bed elevated 60 degrees. Reassurance given. Call light placed in reach. Side rails up x 1. Bed placed in lowest position. Brakes of bed on. --06:33 Marlon Lopez R.N. 06:30 10/05/2016 Site #1 started via IV in the right antecubital space with an 20g angiocath, with aseptic technique and good blood return; one attempt. Blood drawn: rainbow set. Labeled in the presence of the patient and sent to the lab. Saline lock flushed with 10 mL saline. --06:40 Doris Morris Patient ID band checked for patient name and birthdate: patient confirmed. Blood samples drawn from the right antecubital space peripheral IV site by nurse ; labeled in presence of the patient and sent to lab: rainbow set. Line flushed with 10 mL normal saline post blood draw. --06:40 Doris Morris 06:40 10/05/2016 Zofran (Ondansetron HCl) IVP 4 mg given over 2 minute(s) via site #1. Allergies verified and confirmed 5 rights. IV patency established. IV site checked: no pain, redness, or swelling. IV flushed thoroughly pre- and post-medication administration. --06:45 Marlon Lopez R.N. 06:50 10/05/2016 Demerol (Meperidine HCl) IVP 12.5 mg given over 2 minute(s) via site #1. Allergies verified and confirmed 5 rights. IV patency established. IV site checked: no pain, redness, or swelling. IV flushed thoroughly pre- and post-medication administration. --06:50 Marlon Lopez R.N. 06:50 10/05/2016 Started bag #1 500 mL IV Fluids IV NS (Saline); at 999 mL/hr over 1 hour(s) via site #1 via IV pump. Allergies verified and confirmed 5 rights. IV patency established. IV site checked: no pain, redness, or swelling. IV flushed thoroughly pre- and post-medication administration. --06:50 Marlon Lopez R.N. 06:53 10/05/2016 Alprazolam PO Tablets 0.25 mg given. Allergies verified, confirmed 5 rights and sedative warning given to the patient. --06:53 Marlon Lopez R.N. 07:17 10/05/16. BP: 147/74. HR: 90. RR: 20. O2 saturation: 97% on room air. Temp: 98 F (oral). Pain level now: 01/26. --07:17 Westley Encarnacion R.N. 07:17 10/05/16. --07:17 Westley Encarnacion R.N. 07:10/05/16. Care transferred and report received. --07:17 Westley Encarnacion R.N. 07:17 10/05/16. Cardiac rhythm: normal sinus rhythm. --07:17 Westley Encarnacion R.N. 07:18 10/05/16. The plan of care for this patient has been created. phototypesetting equipment monitor, pulse oximeter and NIBP monitor placed on patient; monitor alarms on. Head of bed elevated. --07:18 Westley Encarnacion R.N. 07:35 10/05/16. Patient ID band checked for patient name and birthdate: patient confirmed. Clean catch urine collected with return of marci-colored urine. --07:35 Westley Encarnacion R.N. EKG time: (06:45). EKG was performed by a tech and shown to the ED physician. --07:48 Alecia Pete 08:04 10/05/16. Patient transported to CT by stretcher with tech. --08:04 Westley Encarnacion R.N. 08:10/05/16. Patient returned from radiology by stretcher with tech. --08:17 Jaime Lizama R.N. 08:10/05/16. BP: 135/72. HR: 89. RR: 18. O2 saturation: 99% on room air. Temp: 98.2 F (oral). --08:19 Westley Encarnacion R.N. 08:10/05/16. Cardiac rhythm: normal sinus rhythm. --08:19 Westley Encarnacion R.N. 08:44 10/05/16. Cardiac rhythm: normal sinus rhythm. --08:44 Westley Encarnacion R.N. 08:44 10/05/16. BP: 144/65. HR: 85. RR: 16. O2 saturation: 98% on room air. --08:44 Westley Encarnacion R.N. 08:44 10/05/16. The patient is calm, resting quietly and sleeping. --08:44 Westley Encarnacion R.N. 09:22 10/05/2016 IV Fluids IV NS Discontinued. Total amount infused: 1500 mL. IV patency established. IV site checked: no pain, redness, or swelling. IV flushed thoroughly. --09:22 Westley Encarnacion R.N. 09:23 10/05/2016 GI COCKTAIL WHITE (Simethicone) PO 50 mL given. Allergies verified and confirmed 5 rights. --09:23 Westley Encarnacion R.N. DISPOSITION / DISCHARGE 09:40 10/05/2016 Site #1 removed upon discharge. Catheter intact. --09:40 Westley Encarnacion R.N. 09:41 10/05/16. Cardiac rhythm: normal sinus rhythm. Condition at departure: improved. The goals identified in the patient's plan of care were met. No learning barriers present. Discharge instructions provided and reviewed with the patient. Reviewed warnings. Reviewed medication(s). Treatments reviewed. Patient verbalized understanding. Written instructions provided in Nigerien. The patient was discharged by the physician. He was discharged home and accompanied by family. He left the Emergency Department ambulatory and via private vehicle. Family member driving. FALL RISK ASSESSMENT: Fall risk assessment completed. No fall risk identified. --09:41 Westley Encarnacion R.N. 09:40 10/05/16. BP: 141/72. HR: 80. RR: 14. O2 saturation: 98% on room air. Temp: 98.2 F (oral). Pain level now: 07/27. --09:41 Westley Encarnacion R.N. 09:41 10/05/16. Departure time: 09:41. --09:42 Westley Encarnacion R.N. Locked/Released at 10/05/2016 9:43 by Westley Encarnacion R.N.
--- NOTE | 2016-10-07 07:58 | ED DISCHARGE INSTRUCTIONS ---
Patient: GLENNA DIAZ General Instructions [facility] VisitID: [id number] [place] [address] 71y, M Registration Date/Time: 10/05/2016 Acute esophagitis associated with gastro-esophageal reflux disease (GERD). INSTRUCTIONS Drink plenty of fluids. Avoid alcohol and NSAIDS. Examples of NSAIDS include aspirin, ibuprofen (Advil) and naproxen (Aleve). Avoid spicy foods. Other diet: No caffeine. Your Current Medications: CONTINUE TAKING THE FOLLOWING MEDICATIONS: AmLODIPine Besylate Oral : Tablet 2.5 mg, 3 tablets daily, for blood pressure. Atorvastatin Calcium Oral : Tablet 40 mg, 1 tablet daily. Doxepin HCl Oral : Capsule 50 mg, 1 capsule 2x a day. FLUoxetine HCl Oral : Capsule 10 mg, 5 capsules daily, depression. Perphenazine Oral : Tablet 2 mg, 1 tablet twice daily. Propranolol HCl ER Oral : 20mg twice daily. Vitamin D Oral : Tablet 1000 unit, 2 tablets daily. Warfarin Sodium Oral : Tablet 5 mg, 1 tablet daily, one and a half tablets on Wednesday, Wednesday, and Wednesday. Prescription Medications: Carafate 1 gm tablets: take 1 orally four times daily (before meals and at bedtime) for 10 days. Dispense forty (40). No refills. Prilosec 40 mg capsules: take 1 capsule orally every day for 10 days. Dispense ten (10). No refill. Substitution is permissible. Follow-up: Follow up with your doctor Wednesday in four days. Call for an appointment. Understanding of the discharge instructions verbalized by patient. ADDITIONAL INFORMATION GERD (Adult) The esophagus is a tube that carries food from the mouth to the stomach. A valve at the lower end of the esophagus prevents stomach acid from flowing upward. If this valve does not work properly, acid from the stomach enters the esophagus. If this occurs over and over, the acid will injure the lining of the esophagus. This condition is called GERD (gastroesophageal reflux disease) or acid reflux. When stomach acid flows upward into the esophagus, it causes burning, pressure or sharp pain in the upper abdomen or mid to lower chest. The pain can spread to the neck, back, or shoulder, similar to heart pain (angina). There may be belching, an acid taste in the back of the throat, chronic cough, or sore throat or hoarseness. GERD symptoms often occur during the day after a big meal, but it can also occur at night when lying down. Smoking,as well as drinking alcohol, increases the risk of GERD. GERD is a chronic condition. Once it begins, it is often lifelong. Treatment includes changes in eating habits and the use of acid eddi medications to decrease the amount of acid in the stomach. Symptoms often improve with treatment, but if treatment is stopped, the symptoms usually return after a few months. So most persons with GERD will need to continue treatment. Home Care: Take the prescribed acid eddi medication for the full course of treatment even if you begin to feel better sooner. This medication can take up to several days to fully control your symptoms. If you cant afford the prescribed medication, you can try [id number] acid blockers, such as Pepcid AC, Tagamet, Zantac, or Aciphex. If these do not relieve your symptoms, a stronger acid-eddi can be tried, such as Prilosec OTC. You can use antacids, such as Tums, Rolaids, Mylanta, or Maalox, for pain. This will be useful the first few days after starting acid blockers when the blockers havent started working yet. Follow the directions on the label. Liquid antacids may work better than tablets. Note that antacids can interfere with absorption of certain medications. Specifically, do not take Tagamet (cimetidine), Zantac (ranitidine), or Carafate (sucralfate) within 1 hour of taking an antacid. Talk with your pharmacist if you have any questions. Limit or avoid fatty, fried, and spicy foods, as well as coffee, chocolate, mint, and foods with high acid content such as tomatoes and citrus fruit and juices (orange, grapefruit, lemon). Avoid alcohol and smoking. Dont eat large meals, especially at night. Frequent, smaller meals are best. Do not lie down right after eating. And dont eat anything 3 hours before going to bed. If you are overweight, losing weight will reduce symptoms. Women should not wear corsets or girdles because this increases pressure on the stomach and worsens reflux. If your symptoms occur during sleep, use a foam wedge to elevate your upper body (not just your head.) Or, place 4" blocks under the head of your bed. Follow Up with your doctor or as advised by our staff. Further testing may be needed. If you do not begin to improve over the next 4 days, contact your doctor. If you had an x-ray, CT scan, or ECG (electrocardiogram), it will be reviewed by a specialist. Youll be notified of any new findings that affect your care. Get Prompt Medical Attention if any of the following occur: Stomach pain gets worse or moves to the lower right abdomen (appendix area) Chest pain appears or gets worse, or spreads to the back, neck, shoulder, or arm Frequent vomiting (cant keep down liquids) Blood in the stool or vomit (red or black in color) Feeling weak or dizzy, fainting, or trouble breathing Fever of 100.4F (38C) or higher, or as directed by your healthcare provider Sucralfate Oral tablet What is this medicine? SUCRALFATE (CHERY rob fate) helps to treat ulcers of the intestine. How should I use this medicine? Take this medicine by mouth with a glass of water. Follow the directions on the prescription label. This medicine works best if you take it on an empty stomach, 1 hour before meals. Take your doses at regular intervals. Do not take your medicine more often than directed. Do not stop taking except on your doctor's advice. Talk to your railroad brake operator regarding the use of this medicine in children. Special care may be needed. What side effects may I notice from receiving this medicine? Side effects that you should report to your doctor or health home health care provider as soon as possible: allergic reactions like skin rash, itching or hives, swelling of the face, lips, or tongue difficulty breathing Side effects that usually do not require medical attention (report to your doctor or health home health care provider if they continue or are bothersome): back pain constipation drowsy, dizzy dry mouth headache stomach upset, gas trouble sleeping What may interact with this medicine? antacid cimetidine digoxin ketoconazole phenytoin quinidine ranitidine some antibiotics like ciprofloxacin, norfloxacin, and ofloxacin theophylline thyroid hormones warfarin What if I miss a dose? If you miss a dose, take it as soon as you can. If it is almost time for your next dose, take only that dose. Do not take double or extra doses. Where should I keep my medicine? Keep out of the reach of children. Store at room temperature between 15 and 30 degrees C (59 and 86 degrees F). Keep container tightly closed. Throw away any unused medicine after the expiration date. What should I tell my health care provider before I take this medicine? They need to know if you have any of these conditions: kidney disease an unusual or allergic reaction to sucralfate, other medicines, foods, dyes, or preservatives or trying to get breast-feeding What should I watch for while using this medicine? Visit your doctor or health home health care provider for regular check ups. Let your doctor know if your symptoms do not improve or if you feel worse. Antacids should not be taken within one half hour before or after this medicine. Omeprazole Magnesium Gastro-resistant tablet What is this medicine? OMEPRAZOLE (oh ME pray zol) prevents the production of acid in the stomach. It is used to treat the symptoms of heartburn. You can buy this medicine without a prescription. This product is not for long-term use, unless otherwise directed by your doctor or health home health care provider. How should I use this medicine? Take this medicine by mouth. Follow the directions on the product label. If you are taking this medicine without a prescription, take one tablet every day. Do not use for longer than 14 days or repeat a course of treatment more often than every 4 months unless directed by a doctor or healthcare professional. Take your dose at regular intervals every 24 hours. Swallow the tablet whole with a drink of water. Do not crush, break or chew. This medicine works best if taken on an empty stomach 30 minutes before breakfast. If you are using this medicine with the prescription of your doctor or healthcare professional, follow the directions you were given. Do not take your medicine more often than directed. Talk to your railroad brake operator regarding the use of this medicine in children. Special care may be needed. What side effects may I notice from receiving this medicine? Side effects that you should report to your doctor or health home health care provider as soon as possible: allergic reactions like skin rash, itching or hives, swelling of the face, lips, or tongue bone, muscle or joint pain breathing problems chest pain or chest tightness dark yellow or brown urine diarrhea dizziness fast, irregular heartbeat feeling faint or lightheaded fever or sore throat muscle spasm palpitations redness, blistering, peeling or loosening of the skin, including inside the mouth seizures tremors unusual bleeding or bruising unusually weak or tired yellowing of the eyes or skin Side effects that usually do not require medical attention (Report these to your doctor or health home health care provider if they continue or are bothersome.): constipation dry mouth headache loose stools nausea What may interact with this medicine? Do not take this medicine with any of the following medications: atazanavir clopidogrel nelfinavir This medicine may also interact with the following medications: ampicillin certain medicines for anxiety or sleep certain medicines that treat or prevent blood clots like warfarin cyclosporine diazepam digoxin disulfiram iron salts phenytoin prescription medicine for fungal or yeast infection like itraconazole, ketoconazole, voriconazole saquinavir tacrolimus What if I miss a dose? If you miss a dose, take it as soon as you can. If it is almost time for your next dose, take only that dose. Do not take double or extra doses. Where should I keep my medicine? Keep out of the reach of children. Store at room temperature between 20 and 25 degrees C (68 and 77 degrees F). Protect from light and moisture. Throw away any unused medicine after the expiration date. What should I tell my health care provider before I take this medicine? They need to know if you have any of these conditions: black or bloody stools chest pain difficulty swallowing have had heartburn for over 3 months have heartburn with dizziness, lightheadedness or sweating liver disease stomach pain unexplained weight loss vomiting with blood wheezing an unusual or allergic reaction to omeprazole, other medicines, foods, dyes, or preservatives or trying to get breast-feeding What should I watch for while using this medicine? It can take several days before your heartburn gets better. Check with your doctor or health home health care provider if your condition does not start to get better, or if it gets worse. Do not treat diarrhea with over the counter products. Contact your doctor if you have diarrhea that lasts more than 2 days or if it is severe and watery. Do not treat yourself for heartburn with this medicine for more than 14 days in a row. You should only use this medicine for a 2-week treatment period once every 4 months. If your symptoms return shortly after your therapy is complete, or within the 4 month time frame, call your doctor or health home health care provider. You have been given the following additional information: GERD (Adult) Sucralfate Oral tablet Omeprazole Magnesium Gastro-resistant tablet (Electronically signed by Sanjay Patino MD 10/07/2016 7:58)
--- NOTE | 2016-10-07 07:59 | ED MAR SUMMARY ---
..... Medication Administration Record [facility] [address] [place] [address] Patient: GLENNA DIAZ Visit ID: [id number] 71y, M Weight: 81.6 kg Height/Length: 72 in BMI: 24.4 ALLERGIES: No Known Drug Allergy Given 06:40 10/05/2016 Marlon Lopez R.N. Medication Administered: ZOFRAN [IVP] (ONDANSETRON HCL), Dose: 4 mg IVP over 2 minute(s), Site: #1 right AC. Medication Ordered: Zofran IV 4 mg (NOW). Start 06:50 10/05/2016 Marlon Lopez R.N., Stop 09:22 10/05/2016 Westley Encarnacion R.N. Medication Administered: IV NS (SALINE), Dose: IV Fluids over 1 hour(s), Rate: 999 mL/hr, Dispensed: 500 mL bag, Site: #1 right AC. Medication Ordered: IV NS : initial bolus none -, then 500 mL/hr for 3h (NOW); Routine. Given 06:50 10/05/2016 Marlon Lopez R.N. Medication Administered: DEMEROL [IVP] (MEPERIDINE HCL), Dose: 12.5 mg IVP over 2 minute(s), Site: #1 right AC. Medication Ordered: Demerol IV 12.5 mg (NOW). Given 06:53 10/05/2016 Marlon Lopez R.N. Medication Administered: ALPRAZOLAM [PO], Dose: 0.25 mg Tablets PO. Medication Ordered: Alprazolam PO 0.25 mg (NOW). Given 09:23 10/05/2016 Westley Encarnacion R.N. Medication Administered: GI COCKTAIL WHITE [PO] (SIMETHICONE), Dose: 50 mL PO. Medication Ordered: GI Cocktail WHITE PO 50 mL (NOW).
--- NOTE | 2016-10-07 07:59 | ED MAR SUMMARY ---
..... Medication Administration Record [facility] [address] [place] [address] Patient: GLENNA DIAZ Visit ID: [id number] 71y, M Weight: 81.6 kg Height/Length: 72 in BMI: 24.4 ALLERGIES: No Known Drug Allergy Given 06:40 10/05/2016 Marlon Lopez R.N. Medication Administered: ZOFRAN [IVP] (ONDANSETRON HCL), Dose: 4 mg IVP over 2 minute(s), Site: #1 right AC. Medication Ordered: Zofran IV 4 mg (NOW). Start 06:50 10/05/2016 Marlon Lopez R.N., Stop 09:22 10/05/2016 Westley Encarnacion R.N. Medication Administered: IV NS (SALINE), Dose: IV Fluids over 1 hour(s), Rate: 999 mL/hr, Dispensed: 500 mL bag, Site: #1 right AC. Medication Ordered: IV NS : initial bolus none -, then 500 mL/hr for 3h (NOW); Routine. Given 06:50 10/05/2016 Marlon Lopez R.N. Medication Administered: DEMEROL [IVP] (MEPERIDINE HCL), Dose: 12.5 mg IVP over 2 minute(s), Site: #1 right AC. Medication Ordered: Demerol IV 12.5 mg (NOW). Given 06:53 10/05/2016 Marlon Lopez R.N. Medication Administered: ALPRAZOLAM [PO], Dose: 0.25 mg Tablets PO. Medication Ordered: Alprazolam PO 0.25 mg (NOW). Given 09:23 10/05/2016 Westley Encarnacion R.N. Medication Administered: GI COCKTAIL WHITE [PO] (SIMETHICONE), Dose: 50 mL PO. Medication Ordered: GI Cocktail WHITE PO 50 mL (NOW).
--- NOTE | 2016-10-07 07:59 | ED MED RECONCILIATION SUMMARY ---
Patient: GLENNA DIAZ Medication Reconciliation Report [facility] VisitID: [id number] [place] [address] 71y, M Registration Date/Time: 10/05/2016 Weight: 81.6 kg Height/Length: 72 in. BMI: 24.4 ALLERGIES: No Known Drug Allergy The patient's Home Medications are listed below: CONTINUE TAKING THE FOLLOWING MEDICATIONS: AmLODIPine Besylate Oral (2.5 mg) 3 tablets, daily, for blood pressure Atorvastatin Calcium Oral (40 mg) 1 tablet, daily Doxepin HCl Oral (50 mg) 1 capsule, 2x a day FLUoxetine HCl Oral (10 mg) 5 capsules, daily, depression Perphenazine Oral (2 mg) 1 tablet, twice daily Propranolol HCl ER Oral 20mg, twice daily Vitamin D Oral (1000 unit) 2 tablets, daily Warfarin Sodium Oral (5 mg) 1 tablet, daily, one and a half tablets on Wednesday, Wednesday, and Wednesday The source(s) of the original Home Medication information: Not obtained. The following Medications were given to the patient in the Emergency Department: Zofran [IVP] IVP 4 mg, administered: 10/05/2016 6:40:00 AM Demerol [IVP] IVP 12.5 mg, administered: 10/05/2016 6:50:00 AM IV NS IV Fluids bolus 0, then 999 mL/hr, administered: 10/05/2016 6:50:00 AM Alprazolam [PO] PO 0.25 mg, administered: 10/05/2016 6:53:00 AM GI COCKTAIL WHITE [PO] PO 50 mL, administered: 10/05/2016 9:23:00 AM The following Medications were prescribed to the patient: Carafate 1 gm tablets: take 1 orally four times daily (before meals and at bedtime) for 10 days. Dispense forty (40). No refills. -- Sanjay Patino MD Prilosec 40 mg capsules: take 1 capsule orally every day for 10 days. Dispense ten (10). No refill. Substitution is permissible. -- Sanjay Patino MD
--- NOTE | 2016-10-07 07:59 | ED MED RECONCILIATION SUMMARY ---
Patient: GLENNA DIAZ Medication Reconciliation Report [facility] VisitID: [id number] [place] [address] 71y, M Registration Date/Time: 10/05/2016 Weight: 81.6 kg Height/Length: 72 in. BMI: 24.4 ALLERGIES: No Known Drug Allergy The patient's Home Medications are listed below: CONTINUE TAKING THE FOLLOWING MEDICATIONS: AmLODIPine Besylate Oral (2.5 mg) 3 tablets, daily, for blood pressure Atorvastatin Calcium Oral (40 mg) 1 tablet, daily Doxepin HCl Oral (50 mg) 1 capsule, 2x a day FLUoxetine HCl Oral (10 mg) 5 capsules, daily, depression Perphenazine Oral (2 mg) 1 tablet, twice daily Propranolol HCl ER Oral 20mg, twice daily Vitamin D Oral (1000 unit) 2 tablets, daily Warfarin Sodium Oral (5 mg) 1 tablet, daily, one and a half tablets on Wednesday, Wednesday, and Wednesday The source(s) of the original Home Medication information: Not obtained. The following Medications were given to the patient in the Emergency Department: Zofran [IVP] IVP 4 mg, administered: 10/05/2016 6:40:00 AM Demerol [IVP] IVP 12.5 mg, administered: 10/05/2016 6:50:00 AM IV NS IV Fluids bolus 0, then 999 mL/hr, administered: 10/05/2016 6:50:00 AM Alprazolam [PO] PO 0.25 mg, administered: 10/05/2016 6:53:00 AM GI COCKTAIL WHITE [PO] PO 50 mL, administered: 10/05/2016 9:23:00 AM The following Medications were prescribed to the patient: Carafate 1 gm tablets: take 1 orally four times daily (before meals and at bedtime) for 10 days. Dispense forty (40). No refills. -- Sanjay Patino MD Prilosec 40 mg capsules: take 1 capsule orally every day for 10 days. Dispense ten (10). No refill. Substitution is permissible. -- Sanjay Patino MD
== END 2016-10-05 09:41 | disposition home or self-care (01) ==
LOC: ED SRH 06:24
DX: K21.0 Gastro-esophageal reflux disease with esophagitis (principal); I10 Essential (primary) hypertension; Z79.01 Long term (current) use of anticoagulants; Z79.899 Other long term (current) drug therapy; F17.210 Nicotine dependence, cigarettes, uncomplicated
CPT/HCPCS: 90004; 90100; 90616; 92235; 92530; 92610; 94001; 94060; 95059